=== PATIENT | male | born 1985 | race Caucasian/White ===

== ENCOUNTER 2017-06-09 17:00 | Emergency (ER) | payer MEDICAID ==
[~2017-06-09] VITALS: Ht 172.7 cm; Wt 72.6 kg
[2017-06-09 17:05] VITALS: BP_SYST 139
[2017-06-09] MEDS ORDERED: DIPHENHYDRAMINE INJ 50 MG/ML VIAL IVP ONE (17:15)
[2017-06-09] MEDS ORDERED: FAMOTIDINE PF 20 MG/2 ML VIAL IVP ONE (17:15)
[2017-06-09] MEDS ORDERED: methylPREDNISolone SOD SUCC/PF 62.5 MG/ML VIAL IVP ONE (17:15)
[2017-06-09] MEDS ORDERED: NS 500 ML IV ONE (17:30)
[2017-06-09 19:09] VITALS: BP_SYST 130
== END 2017-06-09 19:09 | disposition home or self-care (01) ==
LOC: SED 17:00
DX: T63.441A Toxic effect of venom of bees, accidental (unintentional), initial encounter (principal); Y92.89 Other specified places as the place of occurrence of the external cause
CPT/HCPCS: 96361; 96374; 96375; 99284; J1200; J2930; J3490